=== PATIENT | male | born 1995 | race Caucasian/White ===

== ENCOUNTER 2017-08-24 01:25 | Emergency (ER) | payer SELFPAY ==
[~2017-08-24] VITALS: Ht 177.8 cm; Wt 81.8 kg
[2017-08-24 01:37] VITALS: TEMP 98
[2017-08-24 04:10] VITALS: BP 132/81; PULSE 73
== END 2017-08-24 04:10 | disposition home or self-care (01) ==
LOC: COL.ER 01:25
DX: S93.401A Sprain of unspecified ligament of right ankle, initial encounter (principal); X58.XXXA Exposure to other specified factors, initial encounter